=== PATIENT | male | born 1960 ===

== ENCOUNTER 2021-07-25 16:19 | Inpatient (IN) | payer OTHER ==
[~2021-07-25] VITALS: Ht 170.2 cm; Wt 80.1 kg
[2021-07-25] MEDS ORDERED: ASPIRIN 81 MG TABLET CHEW PO ONE (16:30)
--- NOTE | 2021-07-25 16:30 | NUR ---
CODE CARDIAC NOTED, ASA GIVEN
[2021-07-25] MEDS ORDERED: ONDANSETRON 2MG/ML, 2ML ONE (16:33)
[2021-07-25] MEDS ORDERED: MORPHINE SULFATE 4 MG/ML, 1ML ONE ×2 (16:33→16:51)
--- NOTE | 2021-07-25 16:35 | NUR ---
COVID SWAB DONE, XRAY, PADS ON, 4MG OF ZOFRAN AND 4MG OF MORHPHINE GIVEN
--- NOTE | 2021-07-25 16:38 | NUR ---
DR. WILSON AND DR. LOPEZ IN ROOM
--- NOTE | 2021-07-25 16:40 | NUR ---
PAIN AT THIS TIME IS 8/10
[2021-07-25 16:41] LABS: BASOPHILS % (AUTO) 1 % (0-1); EOSINOPHILS % (AUTO) 2 % (1-7); LYMPHOCYTES % (AUTO) 40 % (22-44); MEAN CORPUSCULAR HEMOGLOBIN 33.7 pg (27.5-34.5); MEAN CORPUSCULAR HGB CONC 35.4 g/dL (33.2-36.2); MEAN PLATELET VOLUME 8.3 fL (7.4-10.4); MONOCYTES % (AUTO) 14 % (2-9); NEUTROPHILS % (AUTO) 43 % (42-75); PLATELET COUNT 180 x10^3/uL (130-400); RED BLOOD COUNT 4.73 x10^6/uL (4.38-5.82); RED CELL DISTRIBUTION WIDTH 13.2 % (9.4-14.8)
[2021-07-25] MEDS ORDERED: ASPIRIN 325 MG TABLET PO STA (16:41)
--- NOTE | 2021-07-25 16:42 | NUR ---
NTG GIVEN PER DR. OLIVER
[2021-07-25] MEDS: MORPHINE SULFATE 4 MG/ML, 1ML IVPush PRN ×2 (16:44→16:52)
--- NOTE | 2021-07-25 16:46 | NUR ---
PAIN IS 7/10
[2021-07-25] MEDS ORDERED: NITROGLYCERIN OINT 2%, 1GM TP STA (16:48)
--- NOTE | 2021-07-25 16:48 | NUR ---
PT STATES PAIN IS WORSENING 07/24, DISCUSS WITH DR. LOPEZ, AWAITING [employer] IN[employer] TEAM
[2021-07-25] MEDS ORDERED: NITROGLYCERIN OINT 2%, 1GM TP ONE (16:50)
--- NOTE | 2021-07-25 16:53 | NUR ---
MEDICATED WITH NTG AND MORPHINE PLEASE SHE MAR
[2021-07-25 16:54] LABS: ALANINE AMINOTRANSFERASE 44 U/L (12-78); ALBUMIN 3.6 g/dL (3.4-5.0); ANION GAP 8 mmol/L (5-15); CALCIUM 8.9 mg/dL (8.5-10.1); CHLORIDE 104 mmol/L (98-107); CREATININE 1.22 mg/dL (0.7-1.3)
[2021-07-25 16:58] LABS: ALKALINE PHOSPHATASE 68 U/L (45-117); BILIRUBIN,TOTAL 0.8 mg/dL (0.2-1.0); TOTAL PROTEIN 7.5 g/dL (6.4-8.2); TROPONIN I 0.119 ng/mL (0.000-0.045)
[2021-07-25] MEDS ORDERED: LORazepam 2 MG/ML, 1ML ONE (16:59)
[2021-07-25] MEDS ORDERED: MORPHINE SULFATE 4 MG/ML, 1ML IVPush PRN (17:00)
[2021-07-25] MEDS ORDERED: LORazepam 2 MG/ML, 1ML IVPush ONE (17:00)
[2021-07-25] MEDS ORDERED: ONDANSETRON 2MG/ML, 2ML IVPush ONE (17:00)
[2021-07-25] MEDS ORDERED: LIDOCAINE-MPF 1%, 5ML ONE (17:05)
[2021-07-25] MEDS ORDERED: MIDAZOLAM 1 MG/ML, 5ML ONE (17:05)
[2021-07-25] MEDS ORDERED: VERAPAMIL 2.5 MG/ML, 2ML ONE (17:05)
[2021-07-25] MEDS ORDERED: FENTANYL PF 250 MCG/5ML ONE (17:05)
[2021-07-25] MEDS ORDERED: HEPARIN 1,000 UNITS/ML, 10ML ONE (17:05)
--- NOTE | 2021-07-25 17:05 | NUR ---
PT TO [employer]GS[employer] INSPECTOR
[2021-07-25 17:09] LABS: INTERNATIONAL NORMALIZED RATIO 0.98 (0.93-1.1); PROTHROMBIN TIME 10.5 Seconds (9.6-11.5)
[2021-07-25] MEDS ORDERED: BIVALIRUDIN 250 MG ONE (17:20)
[2021-07-25] MEDS ORDERED: FLUMAZENIL 0.1 MG/1 ML, 5ML ONE (17:27)
[2021-07-25] MEDS ORDERED: POTASSIUM CHLORIDE 20 MEQ TAB.ER.PRT PO ONE (17:30)
[2021-07-25] MEDS ORDERED: POTASSIUM CHLORIDE 20 MEQ, MAGNESIUM SULFATE 1 GM, THIAMINE 200 MG, FOLIC ACID 1 MG, MV... IV SCH (17:30)
[2021-07-25] MEDS ORDERED: TICAGRELOR 90 MG TABLET ONE (17:34)
[2021-07-25 17:36] LABS: CHOL/HDL RATIO 4.6; LDL/HDL RATIO 2.9 (0.5-3.0)
[2021-07-25] MEDS ORDERED: ADENOSINE 6 MG/2 ML ONE (17:38)
[2021-07-25] MEDS ORDERED: MELATONIN 5 MG TABLET PO PRN (18:00)
[2021-07-25] MEDS ORDERED: ONDANSETRON 2MG/ML, 2ML IVPush PRN (18:00)
[2021-07-25] MEDS ORDERED: hydrALAzine 20 MG/ML, 1ML IVPush PRN (18:00)
[2021-07-25] MEDS ORDERED: ACETAMINOPHEN 325 MG TABLET PO PRN (18:00)
[2021-07-25] MEDS ORDERED: DOCUSATE 100 MG CAPSULE PO PRN (18:00)
[2021-07-25] MEDS ORDERED: SODIUM CHLORIDE 0.9% 1,000 ML IV SCH (18:30)
[2021-07-25] MEDS ORDERED: LORazepam 1MG TABLET PO PRN ×3 (18:30)
[2021-07-25] MEDS ORDERED: LORazepam 2 MG/ML, 1ML IV PRN ×4 (18:30)
[2021-07-25] MEDS ORDERED: BIVALIRUDIN 250 MG in SODIUM CHLORIDE 0.9% 50 ML IV SCH ×2 (18:30→20:10)
[2021-07-25] MEDS ORDERED: LORazepam 0.5MG TABLET PO PRN (18:30)
[2021-07-25] MEDS: morphine SULFATE 10 MG/ML, 1ML IVPush PRN ×2 (18:36→23:01)
[2021-07-25] MEDS: ENOXAPARIN 40 MG/0.4 ML SQ SCH (18:38)
[2021-07-25] MEDS: DIAZEPAM 10 MG TABLET PO SCH (19:50)
[2021-07-25 20:23] VITALS: BP 122/77
[2021-07-25] MEDS: TICAGRELOR 90 MG TABLET PO SCH (20:44)
[2021-07-25] MEDS: FAMOTIDINE 20 MG TABLET PO SCH (20:44)
[2021-07-25] MEDS: K-PHOS NEUTRAL 250MG TAB PO SCH (20:44)
[2021-07-25] MEDS: ATORVASTATIN 80 MG TABLET PO SCH (20:44)
[2021-07-26] MEDS: DIAZEPAM 10 MG TABLET PO SCH ×3 (04:10→20:34)
[2021-07-26] MEDS: morphine SULFATE 10 MG/ML, 1ML IVPush PRN ×2 (04:10→18:23)
[2021-07-26] MEDS: METOPROLOL TARTRATE 25 MG TAB PO SCH ×2 (04:10→18:02)
[2021-07-26 04:39] LABS: BASOPHILS % (AUTO) 0 % (0-1); EOSINOPHILS % (AUTO) 0 % (1-7); LYMPHOCYTES % (AUTO) 14 % (22-44); MEAN CORPUSCULAR HGB CONC 34.9 g/dL (33.2-36.2); MEAN PLATELET VOLUME 8.9 fL (7.4-10.4); MONOCYTES % (AUTO) 11 % (2-9); NEUTROPHILS % (AUTO) 75 % (42-75); PLATELET COUNT 142 x10^3/uL (130-400); RED BLOOD COUNT 4.16 x10^6/uL (4.38-5.82); RED CELL DISTRIBUTION WIDTH 13.7 % (9.4-14.8)
[2021-07-26 04:52] LABS: ANION GAP 4 mmol/L (5-15); CALCIUM 8.1 mg/dL (8.5-10.1); CHLORIDE 104 mmol/L (98-107); CREATININE 0.89 mg/dL (0.7-1.3)
[2021-07-26] MEDS: ASPIRIN 81 MG TABLET EC PO SCH (08:19)
[2021-07-26] MEDS: K-PHOS NEUTRAL 250MG TAB PO SCH (08:19)
[2021-07-26] MEDS: TICAGRELOR 90 MG TABLET PO SCH ×2 (08:19→20:35)
[2021-07-26] MEDS: LOSARTAN 25MG TABLET PO SCH ×2 (08:19→20:32)
[2021-07-26] MEDS: FAMOTIDINE 20 MG TABLET PO SCH ×2 (08:19→20:35)
[2021-07-26] MEDS ORDERED: NITROGLYCERIN OINT 2%, 1GM TP SCH (09:00)
[2021-07-26 09:58] LABS: MICROSCOPIC NOT IND
[2021-07-26 10:35] VITALS: BP 137/85
[2021-07-26 14:00] VITALS: BP 143/81
[2021-07-26] MEDS ORDERED: LORATADINE 10 MG TABLET PO PRN (17:00)
[2021-07-26 17:59] VITALS: BP 151/85
[2021-07-26] MEDS: ENOXAPARIN 40 MG/0.4 ML SQ SCH (18:02)
[2021-07-26] MEDS: ATORVASTATIN 80 MG TABLET PO SCH (20:32)
[2021-07-26] MEDS: FLUTICASONE NASAL SPRAY 16GM NAS SCH (20:35)
[2021-07-26] MEDS: THIAMINE 100MG TABLET PO SCH (20:35)
[2021-07-26 20:39] VITALS: BP 152/91
[2021-07-27] MEDS: GUAIFENESIN/DM 200-20MG, 10ML UDC PO PRN ×2 (02:04→15:15)
[2021-07-27 02:06] VITALS: BP 170/102
[2021-07-27 03:15] VITALS: BP 144/80
[2021-07-27 03:42] LABS: BASOPHILS % (AUTO) 0 % (0-1); EOSINOPHILS % (AUTO) 0 % (1-7); LYMPHOCYTES % (AUTO) 17 % (22-44); MEAN CORPUSCULAR HEMOGLOBIN 34.2 pg (27.5-34.5); MEAN CORPUSCULAR HGB CONC 35.8 g/dL (33.2-36.2); MEAN PLATELET VOLUME 8.5 fL (7.4-10.4); MONOCYTES % (AUTO) 10 % (2-9); NEUTROPHILS % (AUTO) 73 % (42-75); PLATELET COUNT 147 x10^3/uL (130-400); RED BLOOD COUNT 4.25 x10^6/uL (4.38-5.82); RED CELL DISTRIBUTION WIDTH 13.5 % (9.4-14.8)
[2021-07-27 03:55] LABS: ALBUMIN 3.2 g/dL (3.4-5.0); ANION GAP 6 mmol/L (5-15); CALCIUM 8.1 mg/dL (8.5-10.1); CHLORIDE 101 mmol/L (98-107)
[2021-07-27 04:00] LABS: ALANINE AMINOTRANSFERASE 62 U/L (12-78); ALKALINE PHOSPHATASE 59 U/L (45-117); BILIRUBIN,TOTAL 1.7 mg/dL (0.2-1.0); CREATINE KINASE, TOTAL 590 U/L (39-308); CREATININE 0.82 mg/dL (0.7-1.3); TOTAL PROTEIN 6.6 g/dL (6.4-8.2)
[2021-07-27] MEDS: DIAZEPAM 10 MG TABLET PO SCH ×2 (04:17→12:00)
[2021-07-27 05:23] VITALS: BP 129/82
[2021-07-27] MEDS: METOPROLOL TARTRATE 25 MG TAB PO SCH ×2 (05:27→17:47)
[2021-07-27] MEDS: FLUTICASONE NASAL SPRAY 16GM NAS SCH ×2 (09:00→09:50)
[2021-07-27 09:48] VITALS: BP 139/81
[2021-07-27] MEDS: THIAMINE 100MG TABLET PO SCH ×2 (09:50→21:12)
[2021-07-27] MEDS: ASPIRIN 81 MG TABLET EC PO SCH (09:50)
[2021-07-27] MEDS: FAMOTIDINE 20 MG TABLET PO SCH ×2 (09:50→21:12)
[2021-07-27] MEDS: LOSARTAN 25MG TABLET PO SCH ×2 (09:50→21:11)
[2021-07-27] MEDS: TICAGRELOR 90 MG TABLET PO SCH ×2 (09:50→21:10)
[2021-07-27] MEDS ORDERED: DIAZEPAM 5 MG TABLET ONE ×2 (11:57→11:59)
[2021-07-27 13:58] VITALS: BP 123/76
[2021-07-27] MEDS: ENOXAPARIN 40 MG/0.4 ML SQ SCH (17:47)
[2021-07-27 21:04] VITALS: BP 109/78
[2021-07-27] MEDS: ATORVASTATIN 80 MG TABLET PO SCH (21:10)
[2021-07-28 02:49] VITALS: BP 122/76
[2021-07-28] MEDS: METOPROLOL TARTRATE 25 MG TAB PO SCH (05:25)
[2021-07-28 05:42] LABS: ANION GAP 5 mmol/L (5-15); CALCIUM 8.4 mg/dL (8.5-10.1); CHLORIDE 104 mmol/L (98-107); CREATININE 1.14 mg/dL (0.7-1.3)
[2021-07-28 08:25] VITALS: BP 120/77
[2021-07-28] MEDS: TICAGRELOR 90 MG TABLET PO SCH (09:00)
[2021-07-28] MEDS: FLUTICASONE NASAL SPRAY 16GM NAS SCH (09:00)
[2021-07-28] MEDS: ASPIRIN 81 MG TABLET EC PO SCH (09:05)
[2021-07-28] MEDS: THIAMINE 100MG TABLET PO SCH (09:05)
[2021-07-28] MEDS: FAMOTIDINE 20 MG TABLET PO SCH (09:05)
[2021-07-28] MEDS: LOSARTAN 25MG TABLET PO SCH (09:05)
[2021-07-28] MEDS ORDERED: LOSA50TA14 PO (10:02)
[2021-07-28] MEDS ORDERED: TICA90TA PO (10:02)
[2021-07-28] MEDS ORDERED: METO50TA4 PO (10:02)
[2021-07-28] MEDS ORDERED: ATOR-2 PO (10:02)
[2021-07-28] MEDS ORDERED: ASPI81TA45 PO (10:02)
== END 2021-07-28 10:33 | disposition home or self-care (01) | DRG 246 ==
LOC: ED 17:02 → EDLOC 17:03 → EDIP 17:03 → CCU 18:03 → 5SO 07-26 10:08
PROVIDERS: ADMIT Hospitalist; ATTEND Internal Medicine
PROC: 4A023N7 Measurement of Cardiac Sampling and Pressure, Left Heart, Percutaneous Approach (ICD-10-PCS; principal; 2021-07-25)
PROC: 027135Z Dilation of Coronary Artery, Two Arteries with Two Drug-eluting Intraluminal Devices, Percutaneous Approach (ICD-10-PCS; 2021-07-25)
PROC: B2111ZZ Fluoroscopy of Multiple Coronary Arteries using Low Osmolar Contrast (ICD-10-PCS; 2021-07-25)
PROC: B2151ZZ Fluoroscopy of Left Heart using Low Osmolar Contrast (ICD-10-PCS; 2021-07-25)
DX: I21.19 ST elevation (STEMI) myocardial infarction involving other coronary artery of inferior wall (principal); I50.33 Acute on chronic diastolic (congestive) heart failure; D68.69 Other thrombophilia; E87.1 Hypo-osmolality and hyponatremia; I13.0 Hypertensive heart and chronic kidney disease with heart failure and stage 1 through stage 4 chronic kidney disease, or unspecified chronic kidney disease; I44.2 Atrioventricular block, complete; E78.5 Hyperlipidemia, unspecified; E83.39 Other disorders of phosphorus metabolism; E87.6 Hypokalemia; F10.10 Alcohol abuse, uncomplicated; I44.30 Unspecified atrioventricular block; N18.2 Chronic kidney disease, stage 2 (mild); R73.03 Prediabetes; I48.0 Paroxysmal atrial fibrillation; I25.10 Atherosclerotic heart disease of native coronary artery without angina pectoris; Z79.899 Other long term (current) drug therapy; Z82.49 Family history of ischemic heart disease and other diseases of the circulatory system; Z87.891 Personal history of nicotine dependence; Z86.16 Personal history of COVID-19; Z95.5 Presence of coronary angioplasty implant and graft
CPT/HCPCS: 36415; 71045; 80047; 80048; 80053; 80061; 80320; 81003; 82550; 82553; 83036; 83735; 84100; 84443; 84484; 85025; 85610; 85730; 87081; 87635; 93005; 93306; 93458; 96374; 96375; 99156; 99157; 99285; C1769; C1894; G0378; J0153; J0583; J1644; J1650; J2250; J2405; J3010; J3411; J3475; J3480; C1725; C1874; C1887; G0480; J0360; J2060; J2270; J7030; Q9967